=== PATIENT | female | born 1990 | race Caucasian/White ===

== ENCOUNTER → 2016-11-26 | Outpatient (CLI) | payer MEDICAID ==
[2016-11-26 10:41] LABS: Basophils % (A) 0 %; CH 28.9; CHCM 34.3; Eosinophils # (A) 0.2 k/uL (0-0.7); Eosinophils % (A) 2 %; HCT 40.4 % (34.0-46.0); HDW 2.77; HGB 13.3 gm/dL (11.4-16.0); Luc # (Auto) 0.11; Luc % (Auto) 2; Lymphocytes # (A) 2.3 k/uL (1.0-4.8); Lymphocytes % (A) 34 %; MCH 27.9 pg (25.0-35.0); MCHC 32.9 g/dL (31.0-37.0); MCV 84.7 fL (80.0-100.0); Mean Platelet Volume 9.4; Monocytes # (A) 0.5 k/uL (0-1.0); Monocytes % (A) 7 %; Neutrophils # (A) 3.6 k/uL (1.3-7.7); Neutrophils % (A) 54 %; RBC 4.77 m/uL (3.80-5.40); RDW 14.1 % (11.5-15.5); WBC 6.6 k/uL (3.8-10.6); WBC (Perox) 6.73
[2016-11-26 11:23] LABS: ALT 53 U/L (9-52); AST 32 U/L (14-36); Alkaline Phosphatase 68 U/L (38-126); Anion Gap 12 mmol/L; Blood Urea Nitrogen 8 mg/dL (7-17); Calcium 9.3 mg/dL (8.4-10.2); Carbon Dioxide 23 mmol/L (22-30); Chloride 105 mmol/L (98-107); Cholesterol 183 mg/dL (<200); Glucose 95 mg/dL (74-99); HDL Cholesterol 49 mg/dL (40-60); Non-African American GFR(MDRD) >60 (>60 ml/min/1.73 sqM); Potassium 4.1 mmol/L (3.5-5.1); Sodium 140 mmol/L (137-145); Total Bilirubin 0.5 mg/dL (0.2-1.3); Total Protein 7.6 g/dL (6.3-8.2)
== END | disposition home or self-care (01) ==
LOC: LABWHC1 10:11
PROVIDERS: ATTEND Family Medicine
DX: E03.9 Hypothyroidism, unspecified (principal)
CPT/HCPCS: 36415; 80053; 80061; 82306; 84439; 84443; 84481; 85025

== ENCOUNTER 2017-02-02 17:58 | Emergency (ER) | payer MEDICAID, OTHER ==
[2017-02-02 18:51] VITALS: BP 132/72; PULSE 102; RESP 20; TEMP 98
--- NOTE | 2017-02-02 19:47 | XR ---
EXAMINATION TYPE: XR lumbar spine 2 or 3V DATE OF EXAM: 02/02/2017 COMPARISON: 02/20/2014 HISTORY: Back pain TECHNIQUE: 3 views FINDINGS: Vertebra have normal spacing and alignment. Posterior elements are intact. Sacroiliac joint s appear normal. There is no sign of compression fracture. There is slight anterior wedging of L1 hamida tebra that is developmental. IMPRESSION: Negative lumbar spine exam. No change.
--- NOTE | 2017-02-02 19:58 | ED ---
Back Pain HPI - General Chief Complaint: Back Pain/Injury Stated Complaint: Back Pain Time Seen by Provider: 02/02/17 19:27 Source: patient, RN notes reviewed Limitations: no limitations - History of Present Illness Initial Comments: This is a 26-year-old female who presents to the emergency department with chief complaint of low back pain. 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 At around 2 AM she was transferring a patient and felt a sharp pain in the right lower back. Patient states that the pain is positional, worsening with moving and bending forward and lying down for long periods of time. Patient states that she has been taking Tylenol for the pain. Denies any numbness or tingling, saddle paresthesias or loss of bladder or bowel function. Denies fever, chills, chest pain, shortness of breath, abdominal pain, nausea or vomiting, constipation or diarrhea, dysuria or hematuria, headache or vision changes. - Related Data Home Medications Medication Instructions Recorded Confirmed Acetaminophen Tab [Tylenol Tab] 975 mg PO Q4H PRN 11/28/15 11/28/15 Previous Rx's Medication Instructions Recorded Amoxicillin/Potassium Clav 1 each PO Q12HR #20 tab 11/28/15 [Augmentin 875-125 Tablet] Fluticasone Propionate [Flonase 1 - 2 spray EA NOSTRIL DAILY 5 11/28/15 Allergy Relief] Days ml Ibuprofen 600 mg PO Q6HR #20 tablet 02/02/17 Allergies Allergy/AdvReac Type Severity Reaction Status Date / Time No Known Allergies Allergy Verified 02/02/17 18:50 Review of Systems ROS Statement: Those systems with pertinent positive or pertinent negative responses have been documented in the HPI. ROS Other: All systems not noted in ROS Statement are negative. Past Medical History Past Medical History: Thyroid Disorder Additional Past Medical History / Comment(s): ovarian cyst scoliosis History of Any Multi-Drug Resistant Organisms: None Reported Past Surgical History: Adenoidectomy, Tonsillectomy Past Psychological History: Anxiety, Bipolar, Depression Smoking Status: Former smoker Past Alcohol Use History: Occasional Past Drug Use History: Marijuana General Exam - General Exam Comments Initial Comments: General: Awake and alert, well-developed; in no apparent distress. HEENT: Head atraumatic, normocephalic. Pupils are equal, round and reactive to light. Extraocular movements intact. Oropharynx moist without erythema or exudate. Neck: Supple. Normal ROM. Cardiovascular: Regular rate and rhythm. No murmurs, rubs or gallops. Chest symmetrical. Respiratory: Lungs clear to auscultation bilaterally. No wheezes, rales or rhonchi. Normal respiratory effort with no use of accessory muscles. Musculoskeletal: Tenderness on palpation of right lumbar paraspinal muscles. Normal active range of motion with twisting, side bending and bending forward. No vertebral or SI joint tenderness. Sensation is intact. Pedal and posterior tibial pulses are 2+ equal and palpable bilaterally. Skin: [place], warm and dry without rashes or lesions. Neurological: Alert and oriented x3. CN II-XII grossly intact. Speech is fluent and answers are appropriate. No focal neuro deficits. Psychiatric: Normal mood and affect. No overt signs of depression or anxiety noted. Limitations: no limitations Course Vital Signs 02/02/17 18:48 Temperature 98.0 F Pulse Rate 102 H Respiratory 20 Rate Blood Pressure 132/72 O2 Sat by Pulse 98 Oximetry Medical Decision Making - Medical Decision Making This is a 26-year-old female who presents to the emergency department for evaluation of low back pain. Patient injured her low back while transferring a patient last night at work. Tenderness on palpation of lumbar paraspinal muscles. No bony point tenderness. Denies saddle paresthesias or loss of bladder or bowel function. Lumbar x-ray showed no acute abnormalities. Patient will be discharged home with a prescription for anti-inflammatories. Patient is in agreement and voices understanding. All questions were answered. - Radiology Data Radiology results: report reviewed Lumbar spine x-ray findings: Vertebra have normal spacing alignment. Posterior elements are intact. Sacroiliac joints appear normal. There is no sign of compression fracture. There is slight anterior wedging of L1 vertebra that is developmental. Impression: Negative lumbar spine exam. No change. Disposition Clinical Impression: Strain of lumbar region Disposition: HOME SELF-CARE Condition: Good Instructions: Low Back Strain (ED), Lower Back Exercises (ED) Additional Instructions: Please take medications as prescribed. Please follow up with primary care provider within 1-2 days. Return to emergency department if symptoms should worsen or any concerns arise. Prescriptions: Ibuprofen 600 mg PO Q6HR #20 tablet Referrals: Kamran Cohn MD [Primary Care Provider] - 1-2 days Time of Disposition: 19:56
== END 2017-02-02 20:01 | disposition home or self-care (01) ==
LOC: EC 17:58
DX: S39.012A Strain of muscle, fascia and tendon of lower back, initial encounter (principal); Z87.39 Personal history of other diseases of the musculoskeletal system and connective tissue; Z87.891 Personal history of nicotine dependence; Y92.69 Other specified industrial and construction area as the place of occurrence of the external cause; Y93.89 Activity, other specified; Y99.0 Civilian activity done for income or pay
CPT/HCPCS: 72100; 99283

== ENCOUNTER 2018-09-22 03:42 | Emergency (ER) | payer MEDICAID, OTHER ==
[2018-09-22 03:49] VITALS: BP 140/99; PULSE 87; RESP 19; TEMP 98.6
[2018-09-22] MEDS ORDERED: IBUPROFEN 400 MG TAB PO STA (04:03)
[2018-09-22] MEDS ORDERED: HYDROcodone/APAP 5-325MG 1 EACH TAB PO STA (04:03)
--- NOTE | 2018-09-22 04:06 | ED ---
Burn/Smoke HPI - General Chief complaint: Burn/Smoke Inhalation Stated complaint: Hand/Arm Burn Time Seen by Provider: 09/22/18 03:54 Source: patient Mode of arrival: ambulatory Limitations: no limitations - History of Present Illness Initial comments: This patient is 28-year-old woman who states that she had been cooking tonight and her left forearm was contacted by [employer]. Patient denies any other injury. There was no spoke exposure. Patient states that her last tetanus shot was less than 10 years ago. She indicates the only area of injury was the left forearm/wrist. Denies loss of sensation or movement. MD Complaint: burn Onset/Timin -: hour(s) Type of Exposure: hot liquid Smoke Inhalation: none Place: home Location - Extremities: Left: Forearm Severity: moderate Associated Symptoms: denies other symptoms - Related Data Home Medications Medication Instructions Recorded Confirmed Acetaminophen Tab [Tylenol Tab] 975 mg PO Q4H PRN 11/28/15 11/28/15 Previous Rx's Medication Instructions Recorded Amoxicillin/Potassium Clav 1 each PO Q12HR #20 tab 11/28/15 [Augmentin 875-125 Tablet] Fluticasone Propionate [Flonase 1 - 2 spray EA NOSTRIL DAILY 5 11/28/15 Allergy Relief] Days ml Ibuprofen 600 mg PO Q6HR #20 tablet 02/02/17 Ibuprofen [Motrin] 600 mg PO Q8HR PRN #20 tab 09/22/18 Allergies Allergy/AdvReac Type Severity Reaction Status Date / Time No Known Allergies Allergy Verified 02/02/17 18:50 Review of Systems ROS Statement: Those systems with pertinent positive or pertinent negative responses have been documented in the HPI. ROS Other: All systems not noted in ROS Statement are negative. Skin: Reports: as per HPI, lesions (Left forearm /wrist burn) Neurological: Denies: weakness, numbness, paresthesias Past Medical History Past Medical History: Thyroid Disorder Additional Past Medical History / Comment(s): ovarian cyst scoliosis History of Any Multi-Drug Resistant Organisms: None Reported Past Surgical History: Adenoidectomy, Tonsillectomy Past Psychological History: Anxiety, Bipolar, Depression Smoking Status: Former smoker Past Alcohol Use History: Occasional Past Drug Use History: Marijuana General Exam Limitations: no limitations General appearance: alert, in no apparent distress Skin exam: Present: warm, dry, intact, urticaria, other (Patient has superficial burning to the left forearm and wrist. Between 1-2% TBSA. One very small area of vesicles. Sensation and motor function intact.) Course Vital Signs 09/22/18 03:46 Temperature 98.6 F Pulse Rate 87 Respiratory 19 Rate Blood Pressure 140/99 O2 Sat by Pulse 97 Oximetry Disposition Clinical Impression: Burn of forearm, left Disposition: HOME SELF-CARE Condition: Good Instructions (If sedation given, give patient instructions): Superficial Burn (DC) Prescriptions: Ibuprofen [Motrin] 600 mg PO Q8HR PRN #20 tab PRN Reason: Pain Is patient prescribed a controlled substance at d/c from ED?: No Referrals: None,Stated [Primary Care Provider] - 1-2 days
[2018-09-22] MEDS ORDERED: traMADol 50 MG STARTER PACK 3 TAB BTL PO STA (04:08)
== END 2018-09-22 04:41 | disposition home or self-care (01) ==
LOC: EC 03:42
DX: T22.012A Burn of unspecified degree of left forearm, initial encounter (principal); T31.0 Burns involving less than 10% of body surface; Z87.891 Personal history of nicotine dependence; X12.XXXA Contact with other hot fluids, initial encounter; Y92.009 Unspecified place in unspecified non-institutional (private) residence as the place of occurrence of the external cause; Y93.G3 Activity, cooking and baking
CPT/HCPCS: 99283

== ENCOUNTER → 2021-09-12 | Outpatient (CLI) | payer BC ==
--- NOTE | 2021-09-12 17:23 | US ---
EXAMINATION TYPE: US thyroid st tissue head/neck DATE OF EXAM: 09/12/2021 COMPARISON: NONE CLINICAL HISTORY: E04.9 NONTOXIC GOITER, UNSPECIFIED. Enlarged thyroid. GLAND SIZE: Right Lobe: 6.5 x 3.1 x 3.3 cm Overall Parenchyma: heterogenous Left Lobe: 7.2 x 3.5 x 4.2 cm Overall Parenchyma: heterogeneous Isthmus Thickness: 1.6 cm NODULES RIGHT: # of nodules measured on right: 0 LEFT: # of nodules measured on left: 0 ISTHMUS: # of nodules measured in the isthmus: 0 Bilateral neck scanned, no evidence of lymphadenopathy. IMPRESSION: Thyroid lobes are enlarged and heterogenous.
== END | disposition home or self-care (01) ==
LOC: RADUSWWP 13:36
PROVIDERS: ATTEND Obstetrics & Gynecology Obstetrics
DX: E04.9 Nontoxic goiter, unspecified (principal)
CPT/HCPCS: 76536

== ENCOUNTER 2022-02-10 16:52 | Inpatient (IN) | payer MEDICAID, OTHER ==
--- NOTE | 2022-02-10 18:12 | P.HPOB ---
History of Present Illness H&P Date: 02/10/22 Chief Complaint: Medical Induction of Labor Ms. Cooley is a 31 year old at 38 weeks, 2 days with EDC 02/22/2022 by LMP consistent with a 13 week US who presents for medical induction of labor for poorly controlled gestational diabetes. Insulin was recommended for blood gl ucose control, however, the patient was unable to afford this. The was also significant for Chlamydial infection on 08/29/2021 with negative test of cure on 12/31/2021. She was started on synthroid during the for high TSH (7.7), low T4 (0.78). Thyromegaly was noted on exam and a thyroid ultrasound was obtained which showed a heterogeneously enlarged thyroid. Laboratory work-up throughout the showed blood type of A positive, RPR reactive but FTA-ABS non-reactive, 1 hr GTT 155, HIV non-reactive, Rubella immune. Past Medical History Past Medical History: Thyroid Disorder Additional Past Medical History / Comment(s): ovarian cyst scoliosis History of Any Multi-Drug Resistant Organisms: None Reported Past Surgical History: Adenoidectomy, Tonsillectomy Past Psychological History: Anxiety, Bipolar, Depression Past Alcohol Use History: Occasional Past Drug Use History: Marijuana Medications and Allergies Allergies Allergy/AdvReac Type Severity Reaction Status Date / Time No Known Allergies Allergy Verified 02/02/17 18:50 Exam Focused exam is performed. Pleasant, obese-appearing, gravid woman who is not in any apparent distress - OBG Physical Exam Cervix: cervix is 0 cm, 0% effaced, and at -3 station. Cooks catheter is inserted through the cervix with 60 cc in both balloons. Assessment and Plan Assessment: Ms. Cooley is a 31 year old at 38 weeks, 2 days with EDC 02/22/2022 by LMP consistent with a 13 week US here for mIOL for poorly controlled GDM Plan: - s/p cooks catheter with 60cc in each balloon, will leave in place for 12 hours - begin low-dose oxytocin until cooks catheter is removed - AROM after cooks catheter has been removed - NPO, mIVF, IV stadol prn Time with Patient: Greater than 30
[2022-02-10] MEDS ORDERED: TERBUTALINE 1 MG/ML VIAL SQ PRN (18:13)
[2022-02-10] MEDS ORDERED: LIDOCAINE 0.5% (PF) 5 MG/ML (50 ML SDV) SQ PRN (18:13)
[2022-02-10] MEDS ORDERED: OXYTOCIN 30 UNITS/500 ML NS 30 UNIT in SALINE 1 500ML.BAG IV SCH (18:15)
[2022-02-10] MEDS ORDERED: LACTATED RINGERS 1,000 ML IV SCH (18:15)
[2022-02-10] MEDS ORDERED: PENICILLIN G POTASSIUM 5,000,000 UNIT in DEXTROSE 5% IN WATER 100 ML IVPB STA ×2 (18:19)
[2022-02-10] MEDS: LACTATED RINGERS 1,000 ML IV SCH (18:30)
[2022-02-10 18:41] LABS: Basophils % (A) 0 %; Eosinophils # (A) 0.1 k/uL (0-0.7); Eosinophils % (A) 0 %; HCT 32.1 % (34.0-46.0); HGB 11.1 gm/dL (11.4-16.0); Lymphocytes % (A) 18 %; MCH 28.6 pg (25.0-35.0); MCHC 34.7 g/dL (31.0-37.0); MCV 82.3 fL (80.0-100.0); Mean Platelet Volume 13.7; Monocytes # (A) 0.4 k/uL (0-1.0); Monocytes % (A) 4 %; Neutrophils # (A) 8.5 k/uL (1.3-7.7); Neutrophils % (A) 76 %; Platelet Count 206 k/uL (150-450); RBC 3.89 m/uL (3.80-5.40); RDW 14.3 % (11.5-15.5); WBC 11.2 k/uL (3.8-10.6)
[2022-02-10 19:01] LABS: Glucose,Whole Blood 116 mg/dL (70-110)
[2022-02-10 19:13] LABS: Large Platelets Present; RBC Morphology Normal
[2022-02-10] MEDS: PENICILLIN G POTASSIUM 2,500,000 UNIT in DEXTROSE 5% IN WATER 100 ML IVPB SCH ×2 (22:18)
[2022-02-11 00:08] LABS: Glucose,Whole Blood 91 mg/dL (70-110)
[2022-02-11] MEDS: PENICILLIN G POTASSIUM 2,500,000 UNIT in DEXTROSE 5% IN WATER 100 ML IVPB SCH ×10 (02:19→19:27)
[2022-02-11] MEDS ORDERED: BUTORPHANOL 1 MG/ML 1 ML VIAL IV PRN (02:43)
[2022-02-11] MEDS: LACTATED RINGERS 1,000 ML IV SCH ×3 (04:47→18:32)
[2022-02-11 06:07] LABS: Glucose,Whole Blood 95 mg/dL (70-110)
[2022-02-11] MEDS ORDERED: ONDANSETRON 4 MG/2 ML VIAL IVP STA (10:43)
[2022-02-11 13:49] LABS: Glucose,Whole Blood 87 mg/dL (70-110)
[2022-02-11] MEDS ORDERED: AZITHROMYCIN 500 MG in SODIUM CHLORIDE 0.9% 250 ML IVPB STA (18:12)
[2022-02-11] MEDS ORDERED: CITRIC ACID-SODIUM CITRATE 15 ML CUP PO ONE (18:30)
[2022-02-11] MEDS ORDERED: fentaNYL (PF) 50 MCG/ML 2 ML AMP ONE (18:58)
[2022-02-11] MEDS ORDERED: KETOROLAC 15 MG/ML 1 ML VIAL ONE (18:58)
[2022-02-11] MEDS ORDERED: ONDANSETRON 4 MG/2 ML VIAL ONE (18:58)
[2022-02-11] MEDS ORDERED: OXYTOCIN 30 UNITS/500 ML NS BAG IV ONE (18:58)
[2022-02-11] MEDS ORDERED: MORPHINE SULFATE (PF) 0.3 MG/0.3 ML SYR ONE (18:58)
[2022-02-11] MEDS ORDERED: ROPIVACAINE 100 MG, fentaNYL (PF). 200 MCG in SODIUM CHLORIDE 0.9% 76 ML EPIDURAL ONE (19:21)
[2022-02-11] MEDS ORDERED: MORPHINE SULFATE 2 MG/ML SYRINGE IVP PRN (19:30)
[2022-02-11] MEDS ORDERED: diphenhydrAMINE 50 MG/ML 1 ML VIAL IVP PRN ×3 (19:30→20:29)
[2022-02-11] MEDS ORDERED: NALOXONE 0.4 MG/ML 1 ML VIAL IV PRN ×2 (19:30→20:29)
--- NOTE | 2022-02-11 20:25 | P.OP ---
Date of Procedure: 02/11/22 Preoperative Diagnosis: Failure to Progress Postoperative Diagnosis: Same Procedure(s) Performed: Primary Lower Transverse Section Implants: None Anesthesia: epidural Surgeon: Dacia Ansari Electrical Instrumentation Technician #1: Rena Hernandez Estimated Blood Loss (ml): 500 IV fluids (ml): 1,200 Urine output (ml): 200 (taryn colored) Pathology: none sent Condition: stable Disposition: floor Indications for Procedure: Patient is a 31 year old at 38 weeks, 2 days being medically induced for GDM poorly controlled. A cooks catheter was placed and low dose pitocin was started. After the cooks catheter fell out, the patient had progressed to 4 centimeters and got an epidural for anesthesia. AROM was undertaken and clear fluid was noted. heart tones throughout labor were intermittently category I to II, relieved with position changes. She made progress to 8cm, at which point she failed to progress for 6 hours. On cervical exam, significant molding of the head was noted and the head was not well-applied to the cervix. section was recommended for maternal and well-being. Risks of bleeding, infection, damage to surrounding structures including bowel, bladder, and ureters. The patient understands these risks and desires to proceed. Operative Findings: Viable female , apgars 9/9, 3600 grams Description of Procedure: The patient was taken back to the operating room where epidural anesthesia was found to be adequate. Two grams of Ancef and 500 milligrams of Azithromycin were given for infection prophylaxis. She was prepared and draped in the dorsal supine position with a leftward tilt. A Pfannenstiel skin incision was made with the scalpel. The incision was carried down to the fascia. The fascia was incised and extended laterally with Salinas scissors. The superior aspect of the fascia was grasped with the Di clamps. The underlying rectus muscle was dissected off sharply with Salinas scissors. In a similar fashion, the inferior aspect of the fascia was elevated with Di clamps and the rectus muscle and pyramidalis were dissected off. Excellent hemostasis was achieved with the bovie. The rectus muscle was in the midline down to the level of the pubic symphysis. Pre-peritoneal fatty tissue was bluntly dissected to expose the peritoneum. The peritoneum was found to be free of adherent bowel and entered sharply with Metzenbaum scissors. The peritoneal incision was extended superiorly and inferiorly to the bladder reflection with good visualization of the bladder. The bladder blade was inserted and vesicouterine peritoneum was identified. Intraabdominal survey revealed scant, clear peritoneal fluid and the thinned-out lower uterine segment. The vesicouterine peritoneum was opened with scissors and the bladder flap was developed. The bladder blade was repositioned to keep the bladder out of the operative field. The lower uterine segment was incised with a scalpel. The uterine incision was extended bluntly with lateral and upward traction. The fetus was in occiput transverse position with significant molding. The head was elevated out of the pelvis with special attention paid to avoid using the uterine incision as a fulcrum. Gentle fundal pressure was applied once the head was brought into the incision. The was delivered with no difficulty. The mouth and nose were suctioned with a bulb. The cord was clamped and cut. The was handed off to the mica laminating machine feeder. IV oxytocin was initiated to facilitate uterine contractions. The placenta was delivered intact with manual massage of uterine fundus. The uterus was then exteriorized and the inside of the uterus was gently wiped with a lap sponge to assure complete removal of placental membranes. The uterine incision was closed with a 0- Polysorb suture in a running locked fashion. A second imbricating layer with 0- Polysorb was used to achieve hemostasis. Additional jjpnje-bw-legaw sutures were placed at the corners of the hysterotomy. The ovaries and tubes were found to be normal. The uterus, tubes, and ovaries were then gently returned to the abdominal cavity. The blood clots and fluid were wiped out of the abdomen and pelvis with moist laparotomy sponges. The uterine incision was reinspected and excellent hemostasis was noted. The fascial layer was closed with a 0-Polysorb suture in a running fashion. The subcutaneous layer was closed with 2-0 Plain Gut in a running fashion. The skin was closed with 0-Polysorb suture in a subcuticular fashion. The patient tolerated the procedure well. All the counts were correct times two. The patient was taken to the recovery room in a stable condition.
[2022-02-11] MEDS ORDERED: diphenhydrAMINE 25 MG CAP PO PRN (20:29)
[2022-02-11] MEDS ORDERED: MEASLES-MUMPS-RUBELLA VACC/PF 12,500 UNIT/0.5 ML VIAL SQ ONE (20:29)
[2022-02-11] MEDS ORDERED: METOCLOPRAMIDE 5 MG/ML 2 ML VIAL IVP PRN (20:29)
[2022-02-11] MEDS ORDERED: diphenhydrAMINE 50 MG CAP PO PRN (20:29)
[2022-02-11] MEDS ORDERED: ONDANSETRON 4 MG/2 ML VIAL IVP PRN (20:29)
[2022-02-11] MEDS ORDERED: ZOLPIDEM 5 MG TAB PO PRN (20:29)
[2022-02-11] MEDS ORDERED: LACTATED RINGERS 1,000 ML IV SCH (20:30)
[2022-02-11] MEDS ORDERED: OXYTOCIN 30 UNITS/500 ML NS 30 UNIT in SALINE 1 500ML.BAG IV SCH (20:30)
[2022-02-12] MEDS: LACTATED RINGERS 1,000 ML IV SCH ×2 (00:03→10:54)
[2022-02-12] MEDS: ACETAMINOPHEN TAB 500 MG TAB PO SCH ×4 (00:03→18:06)
[2022-02-12] MEDS: KETOROLAC 15 MG/ML 1 ML VIAL IVP SCH ×5 (00:04→15:06)
[2022-02-12 02:12] LABS: Glucose,Whole Blood 75 mg/dL (70-110)
[2022-02-12 05:00] LABS: Glucose,Whole Blood 73 mg/dL (70-110)
--- NOTE | 2022-02-12 07:11 | P.PN ---
Progress Note - Text 02/12/22 621am 31-year-old female status post with spinal Duramorph. Patient seen and evaluated for postop pain control, patient has a VAS of 3 with no complains of nausea vomiting or pruritus. Patient doing well
[2022-02-12 07:12] LABS: Basophils % (A) 0 %; Eosinophils % (A) 0 %; HCT 25.2 % (34.0-46.0); Lymphocytes # (A) 1.4 k/uL (1.0-4.8); Lymphocytes % (A) 11 %; MCH 27.9 pg (25.0-35.0); MCHC 33.2 g/dL (31.0-37.0); Mean Platelet Volume 15.4; Monocytes # (A) 0.5 k/uL (0-1.0); Monocytes % (A) 4 %; Neutrophils # (A) 10.5 k/uL (1.3-7.7); Neutrophils % (A) 83 %; RDW 14.9 % (11.5-15.5); WBC 12.7 k/uL (3.8-10.6)
[2022-02-12 07:22] LABS: HGB 8.4 gm/dL (11.4-16.0)
[2022-02-12] MEDS: SENNOSIDES-DOCUSATE SODIUM 1 EACH TAB PO SCH ×2 (08:01→20:57)
[2022-02-12 08:52] LABS: Platelet Count 138 k/uL (150-450)
--- NOTE | 2022-02-12 09:40 | P.PNOBGPC ---
Subjective - Subjective Principal diagnosis: Primary Low Transverse Setion Interval history: The patient did well overnight. Pain is well controlled with the medications. Appetite has been lower than normal, but she is tolerating water and crackers. She is ambulating to the bathroom. Case was removed this morning and she has not yet been able to void. She denies flatus, bowel movements. She denies fevers, chills, chest pain, shortness of breath, pain or swelling in the legs. Patient reports: Reports pain well controlled, Reports appetite poor, Reports ambulating normally, Reports other (case recently removed, awaiting void) [place]: doing well, bottle feeding Objective - Vital Signs Latest vital signs: Vital Signs Temp Pulse Resp BP Pulse Ox 02/12/22 08:00 97.9 F 61 16 106/71 96 02/12/22 06:00 16 02/12/22 04:00 98.2 F 58 L 16 113/64 96 02/12/22 02:00 16 98 02/12/22 00:30 98 02/12/22 00:00 97.2 F L 68 16 110/62 98 02/11/22 22:30 16 97 02/11/22 22:03 97.2 F L 63 16 109/57 97 02/11/22 21:33 77 16 109/59 98 02/11/22 21:03 119/57 100 02/11/22 20:48 76 16 121/64 100 02/11/22 20:33 76 16 107/57 100 02/11/22 20:30 77 16 99 02/11/22 20:18 72 16 120/60 99 02/11/22 20:03 97.4 F L 78 16 112/58 99 02/11/22 19:30 16 99 Intake and Output 02/11/22 02/12/22 02/12/22 22:59 06:59 14:59 Output Total 2816 200 Balance -2816 -200 Output: Urine 300 200 Uretheral (Case) 200 Estimated Blood Loss 2336 Output, Quantitative 180 Blood Loss Other: Voiding Method Indwelling Catheter # Voids 0 - Exam Extremities: Present: normal Abdomen: Present: normal appearance, soft, other Incision: Present: normal, dressed (no shadowing or strikethrough on the ba ndage) Uterus: Present: normal, firm - Labs Labs: Abnormal Lab Results - Last 24 Hours (Table) 02/12/ Range/Units 05:50 WBC 12.7 H (3.8-10.6) k/uL RBC 3.00 L (3.80-5.40) m/uL Hgb 8.4 L D (11.4-16.0) gm/dL Hct 25.2 L (34.0-46.0) % Plt Count 138 L (150-450) k/uL Neutrophils # 10.5 H (1.3-7.7) k/uL Assessment and Plan Assessment: 31 y/o now POD#1 s/p 1LTCS 2/2 failure to progress during mIOL for poorly controlled GDM Plan: - Patient meeting postoperative milestones appropriately, no concerns at this time. - Viable female at the bedside doing well, formula-feeding Dispo: Anticipate discharge home tomorrow on POD#2
[2022-02-12 15:02] LABS: Glucose,Whole Blood 79 mg/dL (70-110)
[2022-02-12] MEDS: IBUPROFEN 600 MG TAB PO PRN (20:55)
[2022-02-13] MEDS: ACETAMINOPHEN TAB 500 MG TAB PO SCH ×4 (00:52→14:17)
[2022-02-13] MEDS: IBUPROFEN 600 MG TAB PO PRN ×2 (04:17→12:09)
[2022-02-13 08:16] VITALS: BP 117/74; PULSE 76; RESP 16; TEMP 97.8
[2022-02-13] MEDS: SENNOSIDES-DOCUSATE SODIUM 1 EACH TAB PO SCH (08:22)
--- NOTE | 2022-02-13 12:46 | P.PNOBGPC ---
Subjective - Subjective Principal diagnosis: Primary Lower Transverse Section Interval history: Patient doing well. No acute events overnight. She is ambulating, pain well controlled with medications, tolerating PO, voiding without difficulty, passing flatus, having BMs. Denies chest pain, SOB, fevers, chills. Infant formula- feeding. Patient reports: Reports appetite normal, Reports voiding normally, Reports pain well controlled, Reports ambulating normally, Reports other (passing faltus) : doing well, bottle feeding Objective - Vital Signs Latest vital signs: Vital Signs Temp Pulse Resp BP Pulse Ox 02/13/22 08:00 97.8 F 76 16 117/74 100 02/13/22 06:00 18 02/13/22 04:00 97.7 F 71 18 110/78 100 02/13/22 02:00 16 02/13/22 00:00 98.4 F 83 16 118/75 97 02/12/22 22:00 98.4 F 83 16 118/75 98 02/12/22 20:00 98.4 F 89 16 115/77 100 02/12/22 18:00 16 02/12/22 16:00 97.8 F 82 16 127/84 99 02/12/22 13:52 16 Intake and Output 02/12/22 02/13/22 02/13/22 22:59 06:59 14:59 Other: Voiding Method Toilet # Voids 1 1 1 # Bowel Movements 1 - Exam Extremities: Present: normal Abdomen: Present: normal appearance, soft Incision: Present: normal, dry, intact Uterus: Present: normal, firm Assessment and Plan Assessment: 31 y/o now POD#2 s/p 1LTCS 2/2 failure to progress during mIOL for poorly controlled GDM Plan: - Patient meeting postoperative milestones appropriately. - Viable female at the bedside doing well, formula-feeding Dispo: Will discharge home today.
--- NOTE | 2022-02-13 12:54 | P.DS ---
Providers Date of admission: 02/10/22 17:42 Expected date of discharge: 02/13/22 Attending physician: Dacia Ansari MD Primary care physician: Stated None Hospital Course: 31 y/o now who presented to L&D for medical induction of labor for poorly controlled GDM. The patient progressed well initially but then ultimately had arrest of active labor at 8cm with over 6 hours of no change. section was recommended. Patient met postoperative milestones appropriately. Viable female is doing well, formula-feeding. The patient is discharged home on POD#2 with instructions to follow up in 2 weeks for incision check and 6 weeks for visit. Plan - Discharge Summary Discharge Rx Participant: No New Discharge Prescriptions: New Ibuprofen [Motrin] 600 mg PO QID PRN #30 tab PRN Reason: Mild To Moderate Pain (1 - 6) Acetaminophen Tab [Tylenol] 1,000 mg PO Q6H PRN #30 tab PRN Reason: Pain Discharge Medication List Acetaminophen Tab [Tylenol] 1,000 mg PO Q6H PRN #30 tab 02/13/22 [Rx] Ibuprofen [Motrin] 600 mg PO QID PRN #30 tab 02/13/22 [Rx] Follow up Appointment(s)/Referral(s): Dacia Ansari MD [STAFF PHYSICIAN] - 2 Weeks Patient Instructions/Handouts: Your Baby (DC), and the Working Mom (DC), Expression, Collection and Storage of Breast Milk (DC), How to Hold and Breastfeed Your Baby (DC), and Nipple Soreness (DC), How to Increase Your Milk Supply (DC), How to Tell if Your Baby is Getting Enough Breast Milk (DC), Depression (DC), Bleeding (DC), (DC) Activity/Diet/Wound Care/Special Instructions: Activity as tolerated. No lifting heavier than 15 pounds for 6 weeks. Pelvic rest for 6 weeks. Discharge Disposition: HOME SELF-CARE
== END 2022-02-13 15:10 | disposition home or self-care (01) | DRG 787 ==
LOC: 4FBP 17:42
PROVIDERS: ADMIT Obstetrics & Gynecology; ATTEND Obstetrics & Gynecology
PROC: 10907ZC Drainage of Amniotic Fluid, Therapeutic from Products of Conception, Via Natural or Artificial Opening (ICD-10-PCS; 2022-02-11)
PROC: 3E033VJ Introduction of Other Hormone into Peripheral Vein, Percutaneous Approach (ICD-10-PCS; 2022-02-11)
PROC: 4A0HXCZ Measurement of Products of Conception, Cardiac Rate, External Approach (ICD-10-PCS; 2022-02-11)
PROC: 10D00Z1 Extraction of Products of Conception, Low, Open Approach (ICD-10-PCS; principal; 2022-02-11 19:07)
DX: O24.429 Gestational diabetes mellitus in childbirth, unspecified control (principal); O99.354 Diseases of the nervous system complicating childbirth; O61.0 Failed medical induction of labor; O76 Abnormality in fetal heart rate and rhythm complicating labor and delivery; O62.0 Primary inadequate contractions; F31.9 Bipolar disorder, unspecified; O99.824 Streptococcus B carrier state complicating childbirth; F41.9 Anxiety disorder, unspecified; M41.9 Scoliosis, unspecified; O99.344 Other mental disorders complicating childbirth; O99.284 Endocrine, nutritional and metabolic diseases complicating childbirth; E07.89 Other specified disorders of thyroid; Z37.0 Single live birth; Z3A.38 38 weeks gestation of pregnancy
CPT/HCPCS: 85025; 86850; 86900; 86901